=== PATIENT | female | born 1955 | race Caucasian/White ===

== ENCOUNTER → 2016-10-10 | Outpatient (CLI) | payer MEDICARE, OTHER ==
[~2016-10-10] MED LIST: ABCT PO; ACET325T38 PO; ATEN-155 PO; ATN25T PO; AZIT250T81 PO; BENZ200C43 PO; CMBV14CC PO; Cyclobenzaprine Hcl PO; DOXEPIN PO; DUONEB 0.5 MG-33 ML IH; DXPN25C PO; FLUO20CA42 PO; FLUO40CA12 PO; GABA300C PO; GABA300S PO; GBPN300C PO; HDR4T PO; HYDR2TAB14 PO; HYDR50TA77 PO; Hydrocodone Bit/Acetaminophen PO; IPRA4AER INH; LEVO100T PO; LEVO125T PO; LEVO500T16 PO; MECL-105 PO; METH4TAB27 PO; MIRT15TA98 PO; MS15TCR PO; MULT-223 PO; ONDA4TAB11 PO; ONDAN4ODT PO; OXYC1TAB87 PO; PRED20TA PO; PROM25TA5 PO; PROP40TA5 PO; ROPI1TAB; SMV20T PO; SULF-228 PO; SUMA100T3 PO; TOPI100T38 PO; TOPI25TA36 PO; UNABLE; VALS80TA
== END ==
LOC: EMS 16:19
PROVIDERS: ATTEND Emergency Medicine
DX: R07.89 Other chest pain (principal); R00.2 Palpitations; M54.89 Other dorsalgia